=== PATIENT | female | born 1975 | race Caucasian/White ===

== ENCOUNTER 2021-06-08 13:47 | Outpatient (CLI) | payer OTHER, SELFPAY ==
--- NOTE | 2021-06-08 13:51 | MM_ITS ---
WS: [email or web address] BILATERAL SCREENING DIGITAL MAMMOGRAM WITH CAD HISTORY: SCREENING COMPARISON: 08/24/2018, 04/18/2017 Bilateral CC and MLO views submitted. Computer aided detection analyzed. Breast composition: The breasts are extremely dense, which lowers the sensitivity of mammography. No suspicious masses, microcalcifications or architectural distortion. Very dense fibroglandular tissue. No interval change. MM/[place] [id number] IMPRESSION: BI-RADS: 2-Benign FOLLOW UP: 1 Year Follow-up
== END 2021-06-08 13:48 | disposition home or self-care (01) ==
LOC: RADSHAW 13:50
PROVIDERS: PCP Family Medicine; Visit Provider Family Medicine
DX: Z12.31 Encounter for screening mammogram for malignant neoplasm of breast (principal)
CPT/HCPCS: 77067

== ENCOUNTER 2022-06-24 01:00 | Outpatient (CLI) | payer OTHER, SELFPAY ==
[2022-06-24 10:32] LABS: Estradiol 242.8 pg/mL; Luteinizing Hormone 10.4 mIU/mL (0.5-41.7); Progesterone 0.115 ng/mL
== END 2022-06-24 23:00 | disposition home or self-care (01) ==
LOC: LAB 07-11 20:40
PROVIDERS: PCP Family Medicine; Visit Provider Family Medicine
DX: E28.2 Polycystic ovarian syndrome (principal)
CPT/HCPCS: 82670; 83002; 84144

== ENCOUNTER 2022-10-25 10:10 | Outpatient (CLI) | payer OTHER, SELFPAY ==
--- NOTE | 2022-10-25 10:16 | MM_ITS ---
WS: [email or web address] SCREENING DIGITAL BREAST TOMOSYNTHESIS MAMMOGRAM WITH CAD HISTORY: SCREENING COMPARISON: 06/08/2021, 08/24/2018 Bilateral CC and MLO with tomosynthesis and synthetic mammography submitted. Computer aided detection analyzed. Breast composition: The breasts are heterogeneously dense, which may obscure small masses. Increased density throughout each breast since the prior examination. There is an asymmetry which is partially obscured measuring 14 mm in the anterior LEFT breast seen on the MLO projection. This was not present on the prior study. Not definitely visualized on the CC projection. No change within the RIGHT breas t. MM/[place] [id number] IMPRESSION: BI-RADS: 0-Incomplete: Need additional imaging evaluation FOLLOW UP: Need Additional Imaging LEFT breast: Spot compression views (MLO). True ML. Ultrasound to follow if abn ormality persists.
== END 2022-10-25 10:11 | disposition home or self-care (01) ==
LOC: RAD 10:13
PROVIDERS: PCP Family Medicine; Visit Provider Family Medicine
DX: Z12.31 Encounter for screening mammogram for malignant neoplasm of breast (principal)
CPT/HCPCS: 77063; 77067

== ENCOUNTER 2022-11-22 09:04 | Outpatient (CLI) | payer OTHER, SELFPAY ==
--- NOTE | 2022-11-22 09:18 | US_ITS ---
WS: [email or web address] Left breast ultrasound, 11/22/2022 Clinical Data: ABNORMAL MAMMO Comparison: Left breast mammogram, 11/22/2022 Findings: The imaging of the anterior breast at multiple projections reveals numerous subcutaneous simple cysts . There is one complex cyst less than 1 cm in size. US/US breast LT limited* [id number] Impression: 1. Multiple cysts in the anterior left breast. 2. Recommend return to annual screening mammograms. BIRADS: 2-Benign FOLLOW UP: 1 Year Follow-up
--- NOTE | 2022-11-22 09:18 | MM_ITS ---
WS: [id number] Left breast diagnostic 3D tomosynthesis digital mammogram, 11/22/2022 Clinical Data: ABNORMAL MAMMO Comparison: 10/25/2022, 06/08/2021, 08/24/2018, 04/18/2017, 06/09/2015, 02/05/2013. Findings: The left breast shows heterogeneous density. The anterior 1.4 cm nodule is only seen on the MLO view. The left CC spot does not demonstrate it distinctly. There are no spiculated masses or clustered cristian cifications. MM/[place] [id number] Impression: 1. Anterior 1.4 cm nodule seen only on MLO view. 2. Recommend left breast ultrasound. BIRADS: 2-Benign FOLLOW UP: See Report The CAD spot checker was used.
== END 2022-11-22 09:05 | disposition home or self-care (01) ==
PROVIDERS: PCP Family Medicine; Visit Provider Family Medicine
DX: R92.8 Other abnormal and inconclusive findings on diagnostic imaging of breast (principal); N60.12 Diffuse cystic mastopathy of left breast
CPT/HCPCS: 76642; 77061; G0279

== ENCOUNTER 2024-06-08 08:21 | Outpatient (CLI) | payer OTHER, SELFPAY ==
--- NOTE | 2024-06-08 08:28 | MM_ITS ---
WS: [email or web address] BILATERAL 3D TOMOSYNTHESIS DIGITAL SCREENING MAMMOGRAPHY WITH CAD CLINICAL INFORMATION: SCREENING HISTORY: Screening mammogram. No current complaints. COMPARISON: 2022 TECHNIQUE: Bilateral CC and MLO views. FINDINGS: The breasts are composed of heterogeneous fibroglandular density tissue, which can limit the detectio n of small underlying mass lesions. No suspicious mass, asymmetry, calcifications, or architectural d istortion. No evidence of malignancy. Previously described nodules in the anterior LEFT breast are si milar in appearance. These were demonstrated previously to represent breast cysts on ultrasound. No n ew suspicious findings. MM/MM [facility] tomosynthesis [id number] IMPRESSION: DENSITY:The breasts are heterogeneously dense, which may obscure small masses. BI-RADS: 2 - Benign FOLLOW UP: 1 Year Follow-up Recommend return to annual screening mammography.
== END 2024-06-08 08:22 | disposition home or self-care (01) ==
PROVIDERS: PCP Family Medicine; Visit Provider Family Medicine
DX: Z12.31 Encounter for screening mammogram for malignant neoplasm of breast (principal); R92.333 Mammographic heterogeneous density, bilateral breasts; N60.02 Solitary cyst of left breast
CPT/HCPCS: 77063; 77067

== ENCOUNTER 2025-06-24 10:13 | Outpatient (CLI) | payer OTHER, SELFPAY ==
--- NOTE | 2025-06-24 10:18 | MM_ITS ---
WS: [email or web address] BILATERAL 3D TOMOSYNTHESIS DIGITAL SCREENING MAMMOGRAPHY WITH CAD CLINICAL INFORMATION: SCREENING HISTORY: Screening mammogram. No current complaints. COMPARISON: 2023 TECHNIQUE: Bilateral CC and MLO views. FINDINGS: The breasts are composed of heterogeneous fibroglandular density tissue, which can limit the detection of small underlying mass lesions. No suspicious mass, asymmetry, calcifications, or architectural distortion. No evidence of malignancy. Nodules in the anterior LEFT breast are stable. Previously demo nstrated to represent breast cysts on ultrasound. MM/MM scr tomosynthesis [id number] IMPRESSION: DENSITY: The breasts are heterogeneously dense, which may obscure small masses. BI-RADS: 2 - Benign FOLLOW UP: 1 Year Follow-up Recommend return to annual screening mammography.
== END 2025-06-24 10:14 | disposition home or self-care (01) ==
LOC: RAD 10:14
PROVIDERS: PCP Family Medicine; Visit Provider Family Medicine
DX: Z12.31 Encounter for screening mammogram for malignant neoplasm of breast (principal); R92.333 Mammographic heterogeneous density, bilateral breasts; R92.323 Mammographic fibroglandular density, bilateral breasts; N63.20 Unspecified lump in the left breast, unspecified quadrant
CPT/HCPCS: 77063; 77067